=== PATIENT | female | born 1940 | race Caucasian/White ===

== ENCOUNTER 2021-03-06 17:29 | Emergency (ER) | payer OTHER ==
[~2021-03-06 17:29] MED LIST: VIBRAMYCIN100 MG PO
[2021-03-06 19:10] LABS: HEMOGLOBIN 15.2 gm/dl (12.3-15.3); RED BLOOD COUNT 4.62 M/UL (4.00-5.10); WHITE BLOOD COUNT 9.7 K/UL (4.5-11.0)
[2021-03-06] MEDS ORDERED: BENTYL 20MG TAB20 MG PO (21:58)
[2021-03-06] MEDS ORDERED: AUGMENTIN 875-1 EACH PO (21:58)
[2021-03-06] MEDS ORDERED: ZOFRAN ODT 4 MG4 MG PO (21:58)
== END 2021-03-06 23:50 | disposition home or self-care (01) ==
LOC: ER1 17:29
PROVIDERS: Physician Assistant
DX: K52.9 Noninfective gastroenteritis and colitis, unspecified (principal); E87.6 Hypokalemia; K62.5 Hemorrhage of anus and rectum; I10 Essential (primary) hypertension; E78.5 Hyperlipidemia, unspecified; Z79.82 Long term (current) use of aspirin
CPT/HCPCS: 80053; 81001; 82270; 83605; 83690; 85025; 85610; 85652; 85730; 86140; 93005; 99284; Q9967